=== PATIENT | male | born 1945 | race Caucasian/White ===

== ENCOUNTER → 2019-06-12 | Day surgery (SDC) | payer OTHER ==
--- NOTE | 2019-06-12 11:21 | RAD REPORT ---
EXAM DESCRIPTION: US - Biopsy Lymph Node - 06/12/2019 10:26 am CLINICAL HISTORY: R22.1 COMPARISON: No comparisons FINDINGS: Preoperative diagnosis: Right supraclavicular mass. Post operative diagnosis: Same. Conscious Sedation: None Fluoroscopy time: None Contrast used: None Estimated blood loss: Minimal Specimens:3 x 18 gauge core biopsy specimens The right supraclavicular region was prepped and draped in the usual sterile fashion. 1% lidocaine wa s infiltrated into the subcutaneous tissues for local anesthesia. Real time ultrasound scanning of th e right supraclavicular region demonstrated 4.7 cm solid mass. Under ultrasound guidance, using a 18- gauge, 6 cm long, 2 cm throw core biopsy gun, 3 specimens were obtained of this lesion and sent to pa thology for evaluation. There were no complications. IMPRESSION: Successful ultrasound-guided core biopsies of right supraclavicular mass.
== END ==
LOC: FNA 10:00
PROVIDERS: ATTEND Surgery
DX: C79.89 Secondary malignant neoplasm of other specified sites (principal)
CPT/HCPCS: 38505; 76942; 88305